=== PATIENT | male | born 1965 | race African-American/Black ===

== ENCOUNTER 2022-12-13 17:52 | Inpatient (IN) | payer MEDICAID ==
[~2022-12-13] VITALS: Ht 172.7 cm; Wt 74.8 kg
[2022-12-13] MEDS ORDERED: METHYLPREDNISOLONE SOD SUCC 125MG/2ML (ACT-O-VIAL) IV ONE (18:00)
[2022-12-13] MEDS ORDERED: DIPHENHYDRAMINE 50MG/ML VIAL IV ONE (18:00)
[2022-12-13] MEDS ORDERED: FAMOTIDINE 20MG/2ML VIAL IV ONE (18:00)
[2022-12-13 19:13] LABS: BASOPHILS % 0.5 % (0.0-2.0); DIFFERENTIAL COMMENT 0; EOSINOPHILS % 3.3 % (0.0-5.0); HEMATOCRIT. 43.1 % (42.0-52.0); HEMOGLOBIN. 14.6 g/dL (14.0-18.0); LYMPHOCYTES % 18.1 % (20.0-50.0); MEAN CORPUSCULAR HEMOGLOBIN 35.7 pg (28.0-32.0); MEAN CORPUSCULAR HGB CONC 33.9 g/dL (31.0-37.0); MEAN CORPUSCULAR VOLUME 105.3 fL (80.0-94.0); MEAN PLATELET VOLUME 8.1 fl (7.4-10.4); MONOCYTES % 9.6 % (2.0-8.0); NEUTROPHILS % 68.5 % (40.0-76.0); PLATELET 198 x1000/uL (130-400); RED BLOOD CELL COUNT 4.09 mill/uL (4.7-6.1); RED CELL DISTRIBUTION WIDTH 14.1 % (11.6-14.6); WHITE BLOOD COUNT 8.2 x1000/uL (4.5-11.0)
[2022-12-13 19:40] LABS: CHLORIDE 108 mEq/L (98-107); INDEX HEMOLYSI 1 (1-3); INDEX ICTERIC 1 (1-4); INDEX LIPEMIC 1 (1-3); SODIUM 139 mEq/L (136-145)
[2022-12-13 19:48] LABS: ALANINE AMINOTRANSFERASE 20 IU/L (13-61); ALBUMIN 3.2 g/dL (3.4-5.0); ASPARTATE AMINOTRANSFERASE 31 IU/L (15-37); BILIRUBIN TOTAL 0.7 mg/dL (0.1-1.0); CALCIUM 8.3 mg/dL (8.5-10.1); CARBON DIOXIDE 28 mEq/L (21-32); GLUCOSE 117 mg/dL (70-105); PROTEIN TOTAL 7.5 g/dL (6.0-8.3); UREA NITROGEN BLOOD 11 mg/dL (7-21)
[2022-12-14 01:00] VITALS: BP 153/89; PULSE 75; RESP 19; TEMP 96.6
[2022-12-14] MEDS ORDERED: CLONIDINE 0.1MG TABLET PO PRN (03:30)
[2022-12-14] MEDS ORDERED: DIPHENHYDRAMINE 50MG/ML VIAL IV PRN (03:30)
[2022-12-14] MEDS ORDERED: ONDANSETRON HCL 4MG/2ML INJ IV PRN (03:30)
[2022-12-14] MEDS ORDERED: DOCUSATE SODIUM 100MG CAPSULE PO PRN (03:30)
[2022-12-14] MEDS ORDERED: ACETAMINOPHEN 325MG TABLET PO PRN ×2 (03:30)
[2022-12-14] MEDS ORDERED: ZOLPIDEM TARTRATE 5MG TABLET PO PRN (03:30)
[2022-12-14 04:00] VITALS: BP 129/72; PULSE 60; RESP 20; TEMP 98.6
[2022-12-14] MEDS: PREDNISONE 20MG TABLET PO SCH ×2 (04:21→08:18)
[2022-12-14] MEDS ORDERED: DEXTROSE 50% WATER 50ML SYRINGE IV PRN (04:45)
[2022-12-14 05:17] LABS: CLARITY URINE CLEAR (CLEAR); COLOR URINE DARK YELLOW (YELLOW); GLUCOSE URINE NEGATIVE (NEGATIVE); KETONES URINE 1+ (NEGATIVE); LEUKOCYTE ESTERASE URINE NEGATIVE (NEGATIVE); NITRITE URINE NEGATIVE (NEGATIVE); OCCULT BLOOD URINE NEGATIVE (NEGATIVE); PH URINE 5.5 (4.5-8.0); PROTEIN URINE NEGATIVE (NEGATIVE); SPECIFIC GRAVITY URINE 1.028 (1.005-1.030)
[2022-12-14 05:27] LABS: *AMPHETAMINES SCREEN URINE NEGATIVE (NEGATIVE); *BARBITURATES SCREEN URINE NEGATIVE (NEGATIVE); *BENZODIAZEPINES SCREEN URINE NEGATIVE (NEGATIVE); *COCAINE SCREEN URINE NEGATIVE (NEGATIVE); CANNABINOID URINE SCREEN NEGATIVE (NEGATIVE); ECSTASY MDMA SCREEN URINE NEGATIVE (NEGATIVE); OPIATES URINE SCREEN NEGATIVE (NEGATIVE); PHENCYCLIDINE URINE SCREEN NEGATIVE (NEGATIVE)
[2022-12-14 08:00] VITALS: BP 124/77; PULSE 90; RESP 18; TEMP 98.5
[2022-12-14] MEDS: OMEPRAZOLE 20MG CAPSULE EXTENDED RELEASE PO SCH ×2 (08:18→21:08)
[2022-12-14] MEDS: DIPHENHYDRAMINE 50MG CAPSULE PO SCH (08:18)
[2022-12-14] MEDS: BLOOD SUGAR DIAGNOSTIC STRIP TEST SCH ×4 (08:22→21:08)
[2022-12-14] MEDS: INSULIN LISPRO 100 UNITS/ML SUBCUT SCH ×4 (08:22→21:00)
[2022-12-14 09:02] LABS: HEMATOCRIT. 46.4 % (42.0-52.0); HEMOGLOBIN. 15.7 g/dL (14.0-18.0); MEAN CORPUSCULAR HEMOGLOBIN 35.5 pg (28.0-32.0); MEAN CORPUSCULAR HGB CONC 33.9 g/dL (31.0-37.0); MEAN CORPUSCULAR VOLUME 104.9 fL (80.0-94.0); MEAN PLATELET VOLUME 9.1 fl (7.4-10.4); PLATELET 236 x1000/uL (130-400); RED BLOOD CELL COUNT 4.42 mill/uL (4.7-6.1); RED CELL DISTRIBUTION WIDTH 13.9 % (11.6-14.6); WHITE BLOOD COUNT 9.8 x1000/uL (4.5-11.0)
[2022-12-14 09:20] LABS: DIFFERENTIAL COMMENT 1
[2022-12-14 11:39] LABS: CHLORIDE 100 mEq/L (98-107); INDEX HEMOLYSI 1 (1-3); INDEX ICTERIC 1 (1-4); INDEX LIPEMIC 1 (1-3); POTASSIUM 4.2 mEq/L (3.5-5.1); SODIUM 135 mEq/L (136-145)
[2022-12-14 11:48] LABS: ETHANOL BLOOD < 10 mg/dL (<10); TROPONIN I HIGH SENSITIVITY 5 ng/L (<78)
[2022-12-14 11:52] LABS: ALANINE AMINOTRANSFERASE 24 IU/L (13-61); ALBUMIN 3.6 g/dL (3.4-5.0); ASPARTATE AMINOTRANSFERASE 31 IU/L (15-37); BILIRUBIN TOTAL 0.7 mg/dL (0.1-1.0); CALCIUM 9.1 mg/dL (8.5-10.1); CARBON DIOXIDE 25 mEq/L (21-32); CHOLESTEROL 179 mg/dL (<200); CREATININE 0.8 mg/dL (0.6-1.3); GLUCOSE 108 mg/dL (70-105); LDL CHOLESTEROL 31 mg/dL (5-100); PHOSPHORUS 3.1 mg/dL (2.5-4.9); PROTEIN TOTAL 8.8 g/dL (6.0-8.3); T4 FREE 0.86 ng/dL (0.76-1.46); THYROID STIMULATING HORMONE 0.47 uIU/mL (0.36-3.74); TRIGLYCERIDE 32 mg/dL (0-150); UREA NITROGEN BLOOD 15 mg/dL (7-21)
[2022-12-14 12:00] VITALS: BP 135/86; PULSE 92; RESP 18; TEMP 97.9
[2022-12-14 12:05] LABS: HDL CHOLESTEROL 141 mg/dL (40-59)
[2022-12-14 12:09] LABS: ERYTHROCYTE SEDIMENTATION RATE 8 mm/hr (0-20)
[2022-12-14 16:00] VITALS: BP 143/90; PULSE 87; RESP 18; TEMP 98
[2022-12-14 18:28] LABS: TROPONIN I HIGH SENSITIVITY 5 ng/L (<78)
[2022-12-14 20:00] VITALS: BP 141/75; PULSE 70; RESP 18; TEMP 99.3
[2022-12-14 20:56] LABS: PLATELET ESTIMATE NORMAL
[2022-12-15 00:13] VITALS: BP 148/91; PULSE 59; RESP 20; TEMP 99.1
[2022-12-15 04:00] VITALS: BP 135/90; PULSE 75; RESP 18; TEMP 99.1
[2022-12-15] MEDS: INSULIN LISPRO 100 UNITS/ML SUBCUT SCH (07:27)
[2022-12-15] MEDS: BLOOD SUGAR DIAGNOSTIC STRIP TEST SCH ×2 (07:27→11:41)
[2022-12-15 08:00] VITALS: BP 141/83; PULSE 55; RESP 18; TEMP 97.9
[2022-12-15] MEDS: DIPHENHYDRAMINE 50MG CAPSULE PO SCH (08:20)
[2022-12-15] MEDS: OMEPRAZOLE 20MG CAPSULE EXTENDED RELEASE PO SCH (08:20)
[2022-12-15] MEDS: PREDNISONE 20MG TABLET PO SCH (08:20)
[2022-12-15 11:27] VITALS: BP 141/83; PULSE 55; TEMP 97.9; O2SAT 97
== END 2022-12-15 13:00 | disposition home or self-care (01) | DRG 811 ==
LOC: ER 17:52 → MICUSO 22:45 → EDBEDREQ 23:03 → EDBEDREQTM 23:03 → ER 12-14 00:01 → 7WST 12-14 01:24
PROVIDERS: ADMIT Hospitalist; ATTEND Hospitalist
DX: T78.3XXA Angioneurotic edema, initial encounter (principal); E44.1 Mild protein-calorie malnutrition; Z68.25 Body mass index [BMI] 25.0-25.9, adult; T39.395A Adverse effect of other nonsteroidal anti-inflammatory drugs [NSAID], initial encounter; X58.XXXA Exposure to other specified factors, initial encounter
CPT/HCPCS: 36415; 80053; 80061; 80305; 80320; 81003; 82962; 83036; 83735; 84100; 84439; 84443; 84484; 85025; 85651; 86160; 99291; J1200; J1815; J2930; J3490; J7512; Q0163; G0480